=== PATIENT | male | born 1975 | race Caucasian/White ===

== ENCOUNTER 2022-11-04 14:32 | Emergency (ER) | payer OTHER, BC | END 2022-11-04 17:02 | disposition home or self-care (01) | LOC: SUPCPDRO 14:32 → VM.ED 14:32 | DX: S82.61XA Displaced fracture of lateral malleolus of right fibula, initial encounter for closed fracture (principal); S93.402A Sprain of unspecified ligament of left ankle, initial encounter; W10.9XXA Fall (on) (from) unspecified stairs and steps, initial encounter | CPT/HCPCS: 73610-LT; 73610-RT; 99283 ==